=== PATIENT | female | born 1950 | race Caucasian/White ===

== ENCOUNTER 2018-12-28 09:46 | Emergency (ER) | payer OTHER ==
[~2018-12-28] VITALS: Ht 152.4 cm; Wt 56.2 kg
[2018-12-28] MEDS ORDERED: DITROPAN XL5 MG (10:10)
[2018-12-28] MEDS ORDERED: ZOCOR5 MG (10:10)
== END 2018-12-28 10:44 | disposition home or self-care (01) ==
LOC: ER 09:46
DX: B02.8 Zoster with other complications (principal)